=== PATIENT | female | born 1950 | race Caucasian/White ===

== ENCOUNTER 2022-06-28 07:40 | Inpatient (IN) | payer MEDICARE, BC ==
[~2022-06-28] VITALS: Ht 170.2 cm; Wt 71.0 kg
[~2022-06-28 07:40] MED LIST: CRESTOR5 MG PO; LEVAQUIN 5500 MG/TA1 PO; MIRAPEX0.5 MG PO; SYNTHROID 0.0.025 MG PO; VOLTAREN 75 DR75 MG PO; ZYLOPRIM 300MG300 MG PO
[2022-06-28 08:07] LABS: HEMOGLOBIN 11.7 g/dl (12.5-16.0); MEAN CELL VOLUME 88 fl (80.0-100.0); MEAN CORPUSCULAR HEMOGLOBIN 31 pg (27-31); MEAN CORPUSCULAR HGB CONC 35 g/dl (33.0-37.0); MEAN PLATELET VOLUME 9.6 fl (7.4-10.4); PLATELET COUNT 171 K/mm3 (130-400); RED BLOOD COUNT 3.76 M/mm3 (4.10-5.30); REDCELL DISTRIBUTION WIDTH-CV 12.1 % (11.5-14.5)
[2022-06-28 08:09] LABS: HEMATOCRIT 33.1 % (37.0-47.0)
[2022-06-28 08:25] LABS: ALBUMIN 3.1 gm/dL (3.4-4.8); BILIRUBIN,TOTAL 0.5 mg/dL (0.2-1.2); CALCIUM 8.4 mg/dL (8.4-10.2); CREATININE, serum 0.61 mg/dL (0.57-1.11); POTASSIUM 3.5 mmol/L (3.5-4.5); TOTAL PROTEIN 6.7 gm/dL (6.2-8.1)
[2022-06-28 08:29] LABS: COLLECTION METHOD CLEAN CATCH
[2022-06-28 08:41] LABS: MUCOUS Present (NOT PRESENT); SQUAMOUS EPITHELIAL 0-2 /hpf (0-10); URINE BACTERIA Rare /hpf (NONE SEEN); URINE RBC 0-2 /hpf (0-2)
[2022-06-28 08:43] LABS: URINE APPEARANCE Clear (CLEAR/HAZY); URINE COLOR Yellow (YELLOW); URINE GLUCOSE Negative (NEGATIVE); URINE PROTEIN(semi-quant) 1+ (NEGATIVE)
[2022-06-28 08:44] LABS: URINE BLOOD Negative (NEGATIVE); URINE KETONE 2+ (NEGATIVE); URINE NITRATE Negative (NEGATIVE)
[2022-06-28 09:03] LABS: BAND 2 % (0-10); EOSINOPHIL 4 % (0-4); LYMPHOCYTE 64 % (20.0-51.0); NEUTROPHILS 4 % (42.0-75.2); PLATELET ESTIMATE NORMAL (NORMAL)
[2022-06-28] MEDS ORDERED: ATIVAN 0.50.5 MG/TAB PO (09:59)
[2022-06-28] MEDS ORDERED: [UNRECOGNIZED DRUG - OTHER] (10:00)
[2022-06-28 10:19] VITALS: BP 125/63; PULSE 81; TEMP 99
[2022-06-28 12:00] VITALS: BP 120/44; PULSE 80; TEMP 99
[2022-06-28 15:52] VITALS: BP 123/58; PULSE 81; TEMP 98.5
--- NOTE | 2022-06-28 17:44 | NUR ---
PATIENT IS NEW ADMIT FROM THE ED. NEUTROPENIA AND FEVERS. PATIENT WAS LAST ON CHEMO ON 06/17. NEW DIAGNOSIS OF LYMPHOMA. PATIENT IS STABLE, VSS. NO FEVERS. COMPLAINS OF SORE GUMS, SO PATIENT TAKES THROAT SPRAY FOR RELIEF. IN PRN MEDICATIONS. AOXO4.
[2022-06-28 20:16] VITALS: BP 116/55; PULSE 80; TEMP 98
--- NOTE | 2022-06-28 22:57 | NUR ---
PATIENT AOX4 AND PLEASANT TO SPEAK WITH UPON ASSESSMENT. SON AND SPOUSE AT BEDSIDE. NO FEVER NOTED ON VITAL SIGNS. GIVEN NIGHTLY MEDICATIONS PLUS PRN PRAMIPREXOLE AND MAGIC MOUTHWASH. LAST CHEMO WAS ON 06/17. THERE IS A RED, WARM TO TOUCH, AND PAINFUL SORE TO HER LEFT LOWER ABDOMEN THAT SHE DID NOT REALIZE WAS PRESENT. SHE GOT A "NAUSEA" MEDICATION TO THE SITE WHEN SHE RECEIVED CHEMO ON 06/17. MARISELA ALVARADO, NOTIFIED AND STARTED HER ON VANCOMYCIN. ON NEUTROPENIC PRECAUTIONS. WBC- 0.8. NA- 129, GIVEN A BOLUS OF FLUIDS IN THE ED. UA- NEGATIVE. ATIVAN RESTARTED FOR PATIENT SHE USES IT FOR SLEEP. BED IN LOWEST POSITION. CALL LIGHT IN REACH. SBA WITH AMBULATION, HAS A STABLE GAIT.
[2022-06-28 23:57] VITALS: BP 122/54; PULSE 73; TEMP 98.5
[2022-06-29 05:18] VITALS: BP 109/57; PULSE 71; TEMP 98
--- NOTE | 2022-06-29 05:18 | NUR ---
71 yo female with a history of lymphoma on chemotherapy is now admitted for further care and management of febrile neutropenia as well as a possible skin/soft tissue infection. ht 170.2 cm wt 71 kg SCr 0.61 with estimated CrCl >60 ml/min half life 10.7 hours Plan: Patient received an initial loading dose of vancomycin 1500 mg x1 in the ED (21.1 mg/kg); will follow with a maintenance regimen of vancomycin 1000 mg q12h to target a goal trough of 10-15 mcg/ml. Will follow patient's renal function, micro data, and vancomycin levels as indicated to assess for any necessary changes to regimen. Thank you for this dosing consult.
[2022-06-29 06:25] LABS: HEMOGLOBIN 11.1 g/dl (12.5-16.0); MEAN CELL VOLUME 91 fl (80.0-100.0); MEAN CORPUSCULAR HEMOGLOBIN 31 pg (27-31); MEAN CORPUSCULAR HGB CONC 34 g/dl (33.0-37.0); MEAN PLATELET VOLUME 9.5 fl (7.4-10.4); PLATELET COUNT 204 K/mm3 (130-400); RED BLOOD COUNT 3.62 M/mm3 (4.10-5.30); REDCELL DISTRIBUTION WIDTH-CV 12.2 % (11.5-14.5)
[2022-06-29 06:33] LABS: HEMATOCRIT 32.8 % (37.0-47.0)
[2022-06-29 06:36] LABS: CALCIUM 8.4 mg/dL (8.4-10.2); CREATININE, serum 0.61 mg/dL (0.57-1.11); POTASSIUM 3.6 mmol/L (3.5-4.5)
[2022-06-29 07:19] LABS: BAND 2 % (0-10); LYMPHOCYTE 74 % (20.0-51.0); NEUTROPHILS 4 % (42.0-75.2); PLATELET ESTIMATE NORMAL (NORMAL)
[2022-06-29 08:20] VITALS: BP 115/65; PULSE 82; TEMP 98.3
[2022-06-29 11:26] VITALS: BP 126/68; PULSE 72; TEMP 98.5
[2022-06-29 16:32] VITALS: BP 116/72; PULSE 72; TEMP 97.7
--- NOTE | 2022-06-29 17:26 | NUR ---
PATIENT IS PLEASANT. INDEPENDENT IN THE ROOM. VSS. DOES NOT COMPLAIN OF PAIN, BUT DOES HAVE DAILY MEDICATIONS FOR RESTLESS LEG SYNDROME WITH PRN DOSE NEEDED. PATIENT NOTICED ON THE RIGHT SIDE OF MOUTH THAT SHE HAS A NEW COLDSORE. NURSING OBSERVED SECRETIONS AT THE SITE. NOTIFIED . ZOVERAX PO AND ROMULO COLD SORE MEDICATION ORDERED AND APPLIED AT 1700. WILL CONTINUE TO MONITOR. PATIENT STILL ON IV VANCOMYCIN. PATIENT HAS BEEN AFEBRILE. NOT A FALL RISK. AT BEDSIDE.
[2022-06-29 19:29] VITALS: BP 132/60; PULSE 79; TEMP 98.7
[2022-06-29 23:21] VITALS: BP 105/75; PULSE 76; TEMP 98.4
[2022-06-30 04:52] VITALS: BP 116/52; PULSE 67; TEMP 98.8
[2022-06-30 06:23] LABS: MEAN CELL VOLUME 89 fl (80.0-100.0); MEAN CORPUSCULAR HEMOGLOBIN 32 pg (27-31); MEAN CORPUSCULAR HGB CONC 36 g/dl (33.0-37.0); MEAN PLATELET VOLUME 9.8 fl (7.4-10.4); PLATELET COUNT 254 K/mm3 (130-400); RED BLOOD COUNT 3.49 M/mm3 (4.10-5.30); REDCELL DISTRIBUTION WIDTH-CV 12.1 % (11.5-14.5)
[2022-06-30 06:34] LABS: HEMATOCRIT 30.9 % (37.0-47.0)
[2022-06-30 06:35] LABS: CALCIUM 8.4 mg/dL (8.4-10.2); CREATININE, serum 0.57 mg/dL (0.57-1.11); POTASSIUM 3.5 mmol/L (3.5-4.5)
--- NOTE | 2022-06-30 07:32 | NUR ---
LAB CALLED WITH CRITICAL WBC 1.[address] Jordan LYONS NOTIFIED AT 0701. NO NEW ORDERS.
[2022-06-30 08:19] LABS: BAND 8 % (0-10); EOSINOPHIL 1 % (0-4); METAMYELOCYTE 1 % (0-0); MYELOCYTE 4 % (0-0); NEUTROPHILS 14 % (42.0-75.2)
[2022-06-30 08:20] LABS: LYMPHOCYTE 59 % (20.0-51.0); PLATELET ESTIMATE NORMAL (NORMAL)
[2022-06-30 08:22] LABS: BURR CELLS 1+; OVALOCYTES 1+
[2022-06-30 08:51] VITALS: BP 125/48; PULSE 74; TEMP 98.7
[2022-06-30] MEDS ORDERED: ZOVIRAX400 MG PO (09:16)
[2022-06-30] MEDS ORDERED: DOXYCYCLINE HY100 MG PO (09:16)
--- NOTE | 2022-06-30 09:30 | NUR ---
Pt. sitting up in chair. Pt. is A&OX3, assessment complete. INT to lt. wrist patent. Pt. denies pain or other needs, call light within reach
--- NOTE | 2022-06-30 12:04 | NUR ---
Pt. ready to D/c, reviewed discharge paperwork. Pt. voices understanding. INT discontinued from lt. wrist. Pt. escorted out by GELY
[2022-07-02 08:03] LABS: PATHOLOGY DIFF REVIEW OK
--- NOTE | 2022-07-03 10:54 | NUR ---
Bilingual Student Tutor collaborated with NELY Mcgill to ammend the discharge orders for Patient to home health. Ammended orders were faxed to [facility]. LORRAINE contacted Alba at [facility] to inform her of the changes and faxed orders.
== END 2022-06-30 12:17 | disposition home or self-care (01) | DRG 809 ==
LOC: COL.ER 07:40 → MEDICAL 09:30
PROVIDERS: Family Medicine; ADMIT Internal Medicine
DX: D70.1 Agranulocytosis secondary to cancer chemotherapy (principal); C85.90 Non-Hodgkin lymphoma, unspecified, unspecified site; R50.81 Fever presenting with conditions classified elsewhere; B00.9 Herpesviral infection, unspecified; G25.81 Restless legs syndrome; E79.0 Hyperuricemia without signs of inflammatory arthritis and tophaceous disease; E03.9 Hypothyroidism, unspecified; T45.1X5A Adverse effect of antineoplastic and immunosuppressive drugs, initial encounter; Z96.652 Presence of left artificial knee joint; Z20.822 Contact with and (suspected) exposure to COVID-19; Z79.890 Hormone replacement therapy
CPT/HCPCS: J0692; J1644; J3370; J7030; J7050